=== PATIENT | male | born 1955 | race Caucasian/White ===

== ENCOUNTER 2017-11-01 14:31 | Inpatient (IN) | payer OTHER ==
[~2017-11-01] VITALS: Ht 175.3 cm; Wt 79.1 kg
[~2017-11-01 14:31] MED LIST: CARBIDOPA-LEVO1 EAC7 PO; LATANOPROST2.5 ML OU; PRAMIPEXOLE DIHY1 MG PO; SINEMET 25-1001 EACH PO; TIMOLOL MALEATE5 M4 OU
--- NOTE | 2017-11-01 14:37 | ED CARDIAC/CP/PALPITATIONS ---
History of Present Illness General Chief Complaint: Chest Pain Stated Complaint: CHEST PAIN Source: patient, old records, EMS Exam Limitations: no limitations Vital Signs & Intake/Output Vital Signs & Intake/Output Vital Signs Date Time Temp Pulse Resp B/P B/P Pulse O2 O2 Flow FiO2 Mean Ox Delivery Rate 11/01 1536 Room Air Room Air 11/01 1503 97.6 59 18 106/60 98 Room Air 11/01 1437 97.4 63 18 150/86 96 Room Air Allergies Coded Allergies: No Known Allergies (04/28/16) Reconcile Medications Carbidopa/Levodopa (Carbidopa-Levodopa 25-100 Tab) 25 MG-100 MG TABLET 2 TAB PO Q4 PARKINSONS (Reported) Carbidopa/Levodopa (Sinemet 25-100 MG Tablet) 25 MG-100 MG TABLET 2 TAB PO Q4 PARKINSON Latanoprost 0.005 % DROPS 1 GTT OPH QPM GLAUCOMA (Reported) Pramipexole Di-HCl (Pramipexole Dihydrochloride) 1 MG TABLET 1 TAB PO TID UNKNOWN (Reported) Timolol Maleate 0.5 % DROPS 1 GTT OPH DAILY GLAUCOMA (Reported) Triage Note: 62 YO MALE BIBA FROM [facility] FOR CHEST APIN. PT STATES HE HABD AN EPISODE OF CHEST PAIN YESTERDAY AND TOOK AN ASPIRIN. STATES HE DROVE TO [facility] AND "DIDNT FEEL RIGHT" SO HE CALLED 911. EN ROUTE TO ER, PT RECIEVED 1 NITRO AND 324MG ASPIRIN. PT STATES PAIN WENT FROM 6/10 TO 5/10 AFTER NITRO. SKIN WARM/DRY. EKG IN PROGRESS. STATES PAIN STARTED LATE MORNING TODAY. MD AT BEDSIDE Triage Nurses Notes Reviewed? yes HPI: Patient brought in by ambulance complaining of substernal chest pressure for the past hour. Patient was at [facility] when the symptoms started. Patient states that he's had symptoms like this intermittently over the past few years but it has never lasted this long. Patient states that he had a nuclear stress test done at [facility] last year and he was told that it was normal. Patient states that he follows up with his regular doctor for this and has had regular EKGs but he has not seen a fire equipment operator for it. Patient denies any shortness of breath. There is no radiation of the substernal chest pressure. Patient was given a nitroglycerin by EMS which brought the pressure from a 6 out of 10 down to a 5 out of 10. Past History Travel History Traveled to [place] past 21 day No Medical History Any Pertinent Medical History? see below for history Neurological: Parkinson's disease EENT: glaucoma Cardiovascular: NONE Respiratory: NONE Gastrointestinal: NONE Hepatic: NONE Renal: NONE Musculoskeletal: NONE Psychiatric: NONE Endocrine: NONE Blood Disorders: NONE Cancer(s): NONE Surgical History Surgical History: non-contributory Psychosocial History What is your primary language Citizen Of [place] Tobacco Use: Never used ETOH Use: denies use Illicit Drug Use: denies illicit drug use Family History Hx Contributory? No Review of Systems Review of Systems Constitutional: Reports: no symptoms. EENTM: Reports: no symptoms. Respiratory: Reports: no symptoms. Cardiovascular: Reports: see HPI, chest pain. GI: Reports: no symptoms. Genitourinary: Reports: no symptoms. Musculoskeletal: Reports: no symptoms. Skin: Reports: no symptoms. Neurological/Psychological: Reports: no symptoms. Hematologic/Endocrine: Reports: no symptoms. Immunologic/Allergic: Reports: no symptoms. All Other Systems: Reviewed and Negative Physical Exam Physical Exam General Appearance: well developed/nourished, alert, awake, mild distress Head: atraumatic, normal appearance Eyes: Bilateral: PERRL, EOMI. Ears, Nose, Throat: normal pharynx, normal ENT inspection, hearing grossly normal Neck: normal inspection, supple, full range of motion Respiratory: normal breath sounds, chest non-tender, no respiratory distress, lungs clear Cardiovascular: regular rate/rhythm, normal peripheral pulses Gastrointestinal: normal bowel sounds, soft, non-tender, no organomegaly Back: normal inspection Extremities: normal inspection, normal capillary refill, normal range of motion, no edema Neurologic/Psych: no motor/sensory deficits, awake, alert, oriented x 3, normal mood/affect Skin: intact, normal color, warm/dry Core Measures ACS in differential dx? Yes No ASA d/t GIVEN BY EMS CVA/TIA Diagnosis No Sepsis Present: No Sepsis Focused Exam Completed? No Progress Differential Diagnosis: AMI, cholecystitis, costochondritis, musculoskeletal pain, myocarditis, pericarditis, pulmonary embolism Plan of Care: Orders Procedure Date/time Status Heart Healthy Diet 11/02 B Active ED Holding Orders 11/01 1605 Active Admit to inpatient 11/01 1605 Active Vital Signs 11/01 1605 Active Code Status 11/01 1605 Active URINE DRUGS OF ABUSE 11/01 1530 Active URINALYSIS 11/01 1530 Complete Telemetry/Online Banking Specialist 11/01 1437 Active TROPONIN LEVEL 11/01 1437 Complete D-DIMER 11/01 1437 Complete COMPREHENSIVE METABOLIC PANEL 11/01 143 Complete CBC WITHOUT DIFFERENTIAL 11/01 143 Complete EKG 11/01 1432 Active Current Medications Sig/Luis Miguel Start time Last Medication Dose Stop Time Status Admin Lorazepam 0.5 MG ONE ONE 11/01 161 UNVr (Ativan) 11/01 1616 Laboratory Tests 11/01/17 1533: Methadone Screen Pending, Barbiturate Screen Pending, Ur Phencyclidine Scrn Pending, Amphetamines Screen Pending, U Benzodiazepines Scrn Pending, Urine Cocaine Screen Pending, Urine Cannabis Screen Pending, Urine Color YEL, Urine Clarity CLEAR, Urine pH 6.0, Ur Specific [place] >= 1.030, Urine Protein NEG, Urine Ketones TRACE H, Urine Nitrite NEG, Urine Bilirubin NEG, Urine Urobilinogen 0.2, Ur Leukocyte Esterase NEG, Ur Microscopic EXAM NOT REQUIRED, Urine Hemoglobin NEG, Urine Glucose NEG 11/01/17 1442: Anion Gap 12, Estimated GFR > 60, BUN/Creatinine Ratio 14.4, Glucose 101 H, Calcium 10.0, Total Bilirubin 0.8, AST 30, ALT 17 L, Alkaline Phosphatase 79, Troponin I < 0.01, Total Protein 7.3, Albumin 4.6, Globulin 2.7, Albumin/ Globulin Ratio 1.7, D-Dimer High Sensitivty < 200, CBC w Diff NO MAN DIFF REQ, RBC 5.17, MCV 86.9, MCH 29.1, MCHC 33.5, RDW 13.4, MPV 8.1, Gran % 79.1 H, Lymphocytes % 13.6 L, Monocytes % 6.6, Eosinophils % 0.3, Basophils % 0.4, Absolute Granulocytes 8.1 H, Absolute Lymphocytes 1.4, Absolute Monocytes 0.7 H, Absolute Eosinophils 0, Absolute Basophils 0 Diagnostic Imaging: Viewed by Me: Radiology Read. Discussed w/RAD: Radiology Read. Pre-Hospital EKG: NSR, no ST T wave changes Initial ED EKG: NSR, no ST T wave changes Prior EKG: unchanged Rhythm Strip: normal sinus rhythm Comments: No relief from a second sublingual nitroglycerin. 4/21/18 1530: Patient is currently pain-free. Chest pain resolved on its own. Discussed with Dr. Keene, he recommends that the patient be admitted for further evaluation. Departure Departure Disposition: STILL A PATIENT Condition: Stable Clinical Impression Primary Impression: ACS (acute coronary syndrome) Referrals: Patient Has No Primary Care Dr Departure Forms: Customer Survey General Discharge Information Admission Note Spoke With: Bari WINKLER,Malia Documentation of Exam: Documentation of any treatments & extenuating circumstances including Concerns Regarding Discharge (functional status, medication knowledge or non-compliance, living conditions, etc.) that warrant an admission rather than observation: [ Patient to be admitted to telemetry monitoring, serial enzymes, cardiology consultation with further evaluation and workup. Unsure if this is anxiety or unstable angina.] Critical Care Note Critical Care Note Critical Care Time: non-applicable
[2017-11-01 15:07] LABS: ABSOLUTE BASOPHIL COUNT 0 /CUMM (0.0-0.2); ABSOLUTE EOSINOPHIL COUNT 0 /CUMM (0.0-0.7); ABSOLUTE GRANULOCYTE CT 8.1 /CUMM (1.4-6.5); ABSOLUTE LYMPH COUNT 1.4 /CUMM (1.2-3.4); ABSOLUTE MONOCYTE COUNT 0.7 /CUMM (0.10-0.60); BASOPHIL % 0.4 % (0.0-2.0); EOSINOPHIL % 0.3 % (0-5); GRANULOCYTE % 79.1 % (42.2-75.2); MEAN CORPUSCULAR HGB 29.1 PG (27.0-31.0); MEAN CORPUSCULAR HGB CONC 33.5 G/DL (33.0-37.0); MEAN CORPUSCULAR VOLUME 86.9 FL (80.0-94.0); MEAN PLATELET VOLUME 8.1 FL (7.4-10.4); PLATELET COUNT 346 /CUMM (130-400); RBC DISTRIBUTION WIDTH 13.4 % (11.5-14.5); RED BLOOD CELL CT 5.17 /CUMM (4.70-6.10); WHITE BLOOD CELL COUNT 10.3 /CUMM (4.8-10.8)
--- NOTE | 2017-11-01 15:19 | RADIOLOGY REPORT ---
EXAMINATION: XR PORTABLE CHEST CLINICAL INFORMATION: Chest pain COMPARISON: None TECHNIQUE: Portable frontal view of the chest was obtained. FINDINGS: No significant abnormality is noted involving the heart, lungs, mediastinum, bony thorax or soft tissues. IMPRESSION: Unremarkable examination.
[2017-11-01] MEDS ORDERED: CARBIDOPA-LEVO1 EAC8 PO (16:45)
[2017-11-01] MEDS ORDERED: NUPLAZID17 MG PO (16:46)
[2017-11-01] MEDS ORDERED: PRAMIPEXOLE D0.75 MG PO (16:46)
--- NOTE | 2017-11-01 17:25 | History & Physical ---
Bhargav Blanco MD 11/01/17 3806: General Information and HPI History of Present Illness: 62-year-old man with past medical history of Parkinson's disease and glaucoma brought in by ambulance for evaluation of epigastric pain. Patient reports waking today in his normal state of health when he decided to go to [employer] for lunch. On the way there he developed an acute onset epigastric/chest discomfort characterized as pressure/sharp 6/10 without radiation. He contacted EMS and was picked up and [facility] [employer] parking lot. En route the [place] ED he was given full strength aspirin and nitroglycerin that improved his discomfort to a 5/10. Presently patient reports that his epigastric discomfort is still a 5/10 and admits to having "bad anxiety" that may be contributing to his symptoms. He feels as if his epigastric discomfort may be due to "heartburn". Review of systems He otherwise denies any headache, fever, chills, blurred/double vision, lightheadedness/dizziness, palpitations, shortness breath, cough, nausea, vomiting, diarrhea, bowel/bladder complaints. Objective Vital signs -Temperature: 97.4-97.6 -Heart rate: 59-63 -Respiratory rate: 18 -Systolic BP: 106-150 -Diastolic BP: 60-86 -O2 sat: 96-98% on room air Physical exam -General: well developed, well nourished middle aged man in no acute distress -HEENT: NCAT, PERRL, EOMI, anicteric sclera -Cardio: S1, S2 w/o murmurs/gallops/rubs -Resp: CTA bilaterally w/o wheezing/rhochi/crackles -GI: soft, nontender, nondistended, bowel sounds present -Neuro: Awake and alert, CN II - XII grossly intact -Extremities: no edema, pulses intact Labs/imaging/studies -CBC: WBC 10.3, hemoglobin 15.1, hematocrit 45.0, platelet 346 -BMP: Sodium 141, potassium 4.5, chloride 101, CO2 28, urea 13, creatinine 0.9, anion gap 12, glucose 101 -LFT: Within normal limits -Miscellaneous: Troponin I <0.01, d-dimer negative -Urinalysis: Unremarkable -Urine toxicology: Unremarkable -CXR: Unremarkable -EKG: Normal sinus rhythm Assessment 62-year-old man with multiple medical problems significant for Parkinson's disease seen for evaluation of acute onset epigastric chest pain. Patient epigastric/chest discomfort seems multifactorial in etiology. He describes the pain as heartburn that is worsened by his anxiety. Patient is to be given a GI cocktail to see if that gives him some relief. He may require an oral PPI. Patient is to be admitted to the telemetry floor to rule out any acute coronary syndrome with serial troponin/EKG and cardiology evaluation. An echocardiogram is to be obtained. Psychiatry consult was placed for further evaluation of his anxiety; Atarax is ordered as needed for further symptoms. Problem list -Chest/epigastric pain, unlikely acute coronary syndrome -Anxiety -Parkinson's disease, on Sinemet/pramipexole -History of hallucinations, on nuplazid -Glaucoma Plan -Admit to telemetry floor -Telemetry monitoring -Fall precautions for Parkinson's -Atarax for anxiety every 6 hours -Continue home meds: Sinemet every 3 hours, pramipexole, nuplazid, latanoprost, timolol -Cardiology consult for chest pain -Psychiatry consult for anxiety -Serial troponin/EKG until peak or 3 negative sets -Obtain echocardiogram -Pain control with acetaminophen -Regular diet -DVT prophylaxis with subcutaneous heparin -Full code Allergies/Medications Allergies: Coded Allergies: No Known Allergies (04/28/16) Home Med list Carbidopa/Levodopa (Carbidopa-Levodopa 25-250 Tab) 25 MG-250 MG TABLET 1 TAB PO Q3H PARKINSONS (Reported) Latanoprost 0.005 % DROPS 1 GTT OU QPM GLAUCOMA (Reported) Pimavanserin Tartrate (Nuplazid) 17 MG TABLET 2 TAB PO QPM HALLUCINATIONS ( Reported) Pramipexole Di-HCl (Pramipexole Dihydrochloride) 0.75 MG TABLET 1 TAB PO BID PARKINSONs (Reported) Timolol Maleate 0.5 % DROPS 1 GTT OU EOD GLAUCOMA (Reported) Past History Travel History Traveled to [place] past 21 day No Medical History Neurological: Parkinson's disease EENT: glaucoma Cardiovascular: NONE Respiratory: NONE Gastrointestinal: NONE Hepatic: NONE Renal: NONE Musculoskeletal: NONE Psychiatric: NONE Endocrine: NONE Blood Disorders: NONE Cancer(s): NONE Surgical History Surgical History: non-contributory Past Family/Social History Psychosocial History ETOH Use: denies use Illicit Drug Use: denies illicit drug use Review of Systems Review of Systems Constitutional: Reports: see HPI. Exam & Diagnostic Data Last 24 Hrs of Vital Signs/I&O Vital Signs Date Time Temp Pulse Resp B/P B/P Pulse O2 O2 Flow FiO2 Mean Ox Delivery Rate 11/01 1801 98.7 51 18 118/60 97 Room Air 11/01 1700 97.4 66 15 136/85 98 Room Air Room Air 11/01 1536 Room Air Room Air 11/01 1503 97.6 59 18 106/60 98 Room Air 11/01 1437 97.4 63 18 150/86 96 Room Air Intake & Output 11/01 1600 11/01 0800 11/01 0000 Intake Total 0 Output Total Balance 0 Intake, Oral 0 Patient 73.936 kg Weight Weight Reported by Patient Measurement Method Assessment/Plan As Ranked By This Provider Problem List: 1. Parkinson disease Core Measures/Misc (03/30) Acute Coronary Syndrome ACS Diagnosis: No Congestive Heart Failure Congestive Heart Failure Diagnosis No Cerebrovascular Accident CVA/TIA Diagnosis: No VTE (View Protocol) VTE Risk Factors Age>40 No Mechanical VTE Prophylaxis d/t N/A MechProphylax Ordered No VTE Pharm Prophylaxis d/t NA PharmProphylax ordered Sepsis (View protocol) Sepsis Present: No Malia Candelaria MD 11/01/17 1842: Attending MD Review Statement Attending Statement Attending MD Statement: examined this patient, discuss w/resident/PA/BALCONY WORKER, agreed w/resident/PA/BALCONY WORKER, reviewed EMR data (avail), discussed with nursing, discussed with case mgmt, reviewed images, amended to note Attending Assessment/Plan: 62-year-old male with past medical history significant for Parkinson's disease, hallucinations, of and on epigastric pain who presented today with substernal chest/epigastric pain. Patient claims that normally when this pain comes it lasts for 30 minutes or so and then it goes away. Today he was walking to his car from a shop when he developed this pain. He went into the car and started to drive home. Pain did not go away so he started to become anxious. He pulled over and tried to relax but the pain did not go away. He called EMS and was brought to the emergency room. Patient received nitroglycerin glycerin by EMS which did not help much but then in the emergency room the second nitroglycerin glycerin helped with the pain. He also claims that they give him something for anxiety en route. Patient denies any shortness of breath, he did have some nausea and vomiting 2 days ago, denies any sweating or palpitations. Patient is somewhat bradycardic. Currently denies any pain. Off note he does take very high dose of Sinemet and he follows with a neurologist in [facility]. He also take pramipexole for his Parkinson's. Vital Signs Date Time Temp Pulse Resp B/P B/P Pulse O2 O2 Flow FiO2 Mean Ox Delivery Rate 11/01 1801 98.7 51 18 118/60 97 Room Air 11/01 1700 97.4 66 15 136/85 98 Room Air Room Air 11/01 1536 Room Air Room Air 11/01 1503 97.6 59 18 106/60 98 Room Air 11/01 1437 97.4 63 18 150/86 96 Room Air on exam; aox3, nad. cv; s1,s2, rrr, bradycardia. resp; clear abd; soft, nt, bs+ ext; no edema Laboratory Tests 11/01 11/01 1533 1442 Chemistry Sodium (137 - 145 mmol/L) 141 Potassium (3.5 - 5.1 mmol/L) 4.5 Chloride (98 - 107 mmol/L) 101 Carbon Dioxide (22 - 30 mmol/L) 28 Anion Gap (5 - 16) 12 BUN (9 - 20 mg/dL) 13 Creatinine (0.7 - 1.2 mg/dL) 0.9 Estimated GFR (>60 ml/min) > 60 BUN/Creatinine Ratio (7 - 25 %) 14.4 Glucose (65 - 99 mg/dL) 101 H Calcium (8.4 - 10.2 mg/dL) 10.0 Total Bilirubin (0.2 - 1.3 mg/dL) 0.8 AST (17 - 59 U/L) 30 ALT (21 - 72 U/L) 17 L Alkaline Phosphatase (< 127 U/L) 79 Troponin I (<0.11 ng/ml) < 0.01 Total Protein (6.3 - 8.2 g/dL) 7.3 Albumin (3.5 - 5.0 g/dL) 4.6 Globulin (1.9 - 4.2 gm/dL) 2.7 Albumin/Globulin Ratio (1.1 - 2.2 %) 1.7 Coagulation D-Dimer High Sensitivty (0 - 243 ng/ml) < 200 Hematology CBC w Diff NO MAN DIFF REQ WBC (4.8 - 10.8 /CUMM) 10.3 RBC (4.70 - 6.10 /CUMM) 5.17 Hgb (14.0 - 18.0 G/DL) 15.1 Hct (42 - 52 %) 45.0 MCV (80.0 - 94.0 FL) 86.9 MCH (27.0 - 31.0 PG) 29.1 MCHC (33.0 - 37.0 G/DL) 33.5 RDW (11.5 - 14.5 %) 13.4 Plt Count (130 - 400 /CUMM) 346 MPV (7.4 - 10.4 FL) 8.1 Gran % (42.2 - 75.2 %) 79.1 H Lymphocytes % (20.5 - 51.1 %) 13.6 L Monocytes % (1.7 - 9.3 %) 6.6 Eosinophils % (0 - 5 %) 0.3 Basophils % (0.0 - 2.0 %) 0.4 Absolute Granulocytes (1.4 - 6.5 /CUMM) 8.1 H Absolute Lymphocytes (1.2 - 3.4 /CUMM) 1.4 Absolute Monocytes (0.10 - 0.60 /CUMM) 0.7 H Absolute Eosinophils (0.0 - 0.7 /CUMM) 0 Absolute Basophils (0.0 - 0.2 /CUMM) 0 Toxicology Urine Opiates Screen (>2000 NG/ML) < 100 Methadone Screen (>300 NG/ML) < 40 Barbiturate Screen (>200 NG/ML) < 60 Ur Phencyclidine Scrn (>25 NG/ML) < 6.00 Amphetamines Screen (>1000 NG/ML) 209 U Benzodiazepines Scrn (>200 NG/ML) < 85 Urine Cocaine Screen (>300 NG/ML) < 50 Urine Cannabis Screen (>50 NG/ML) < 5.00 Urines Urine Color (YEL,AMB,STR) YEL Urine Clarity (CLEAR) CLEAR Urine pH (5.0 - 8.0) 6.0 Ur Specific [place] (1.001 - 1.035) >= 1.030 Urine Protein (NEG,<30 MG/DL) NEG Urine Ketones (NEG) TRACE H Urine Nitrite (NEG) NEG Urine Bilirubin (NEG) NEG Urine Urobilinogen (0.1 - 1.0 EU/dl) 0.2 Ur Leukocyte Esterase (NEG) NEG Ur Microscopic EXAM NOT REQUIRED Urine Hemoglobin (NEG) NEG Urine Glucose (N MG/DL) NEG EKG:: Sinus bradycardia otherwise no acute ST-T wave changes. CXR: Unremarkable. A/P: 62-year-old male with past medical history significant for Parkinson's disease, hallucinations, of and on epigastric pain is admitted to telemetry with chest pain/substernal and epigastric pain. First troponin and EKG negative. Troponins will be trended. Patient to get echocardiogram. Cardiology will be consulted. Please check repeat echo. Patient does have some bradycardia. Will follow with cardiology about any further recommendations. Patient does take very high dose of Sinemet and pramipexole but his neurologist. For now this can be continued and his neurologist can be called on Friday if needed to confirm. Patient will be monitored on telemetry for any arrhythmias. He should be started on a PPI. Patient does complain of feeling anxious. He can use hydroxyzine for anxiety. Please consult psychiatry for anxiety. DVT prophylaxis: Heparin subcutaneous. Full code.
[2017-11-01 18:01] VITALS: BP 118/60
[2017-11-01 22:43] VITALS: BP 138/82
--- NOTE | 2017-11-01 22:46 | Cons- Cardiology ---
General Information and HPI Consulting Request Date of Consult: 11/01/17 Requested By: Malia Candelaria MD History of Present Illness: This patient is a 62 year old male with history of hypertension and Parkinson's disease. He has noted intermittent chest discomfort about one time weekly for about five years. Over the past three days this discomfort has become more frequent and lasts for a longer period of time when it occurs. The discomfort is a mild to moderate and nonradiating aching associated with a left arm paresthesia. On one occasion the patient was nauseated. Today, while in a [employer] lot, the patient had a moderate chest pain and called EMS. They gave him NTG which did provide some, but not complete, relief. There is some associated shortness of breath however the patient denies lightheadedness or palpitations. Allergies/Medications Allergies: Coded Allergies: No Known Allergies (04/28/16) Home Med List: Carbidopa/Levodopa (Carbidopa-Levodopa 25-250 Tab) 25 MG-250 MG TABLET 1 TAB PO Q3H PARKINSONS (Reported) Latanoprost 0.005 % DROPS 1 GTT OU QPM GLAUCOMA (Reported) Pimavanserin Tartrate (Nuplazid) 17 MG TABLET 2 TAB PO QPM HALLUCINATIONS ( Reported) Pramipexole Di-HCl (Pramipexole Dihydrochloride) 0.75 MG TABLET 1 TAB PO BID PARKINSONs (Reported) Timolol Maleate 0.5 % DROPS 1 GTT OU EOD GLAUCOMA (Reported) Review of Systems Review of Systems: A review of systems is unremarkable. Past History Travel History Traveled to [place] past 21 day No Medical History Blood Transfusion Hx: No Neurological: Parkinson's disease EENT: glaucoma Cardiovascular: NONE Respiratory: NONE Gastrointestinal: NONE Hepatic: NONE Renal: NONE Musculoskeletal: NONE Psychiatric: NONE Endocrine: NONE Blood Disorders: NONE Cancer(s): NONE Surgical History Surgical History: non-contributory Psychosocial History Where Do You Live? Home Smoking Status: Never Smoked ETOH Use: denies use Illicit Drug Use: denies illicit drug use Exam & Diagnostic Data Vital Signs and I&O Vital Signs Date Time Temp Pulse Resp B/P B/P Pulse O2 O2 Flow FiO2 Mean Ox Delivery Rate 11/01 1801 98.7 51 18 118/60 97 Room Air 11/01 1800 Room Air 11/01 1700 97.4 66 15 136/85 98 Room Air Room Air 11/01 1536 Room Air Room Air 11/01 1503 97.6 59 18 106/60 98 Room Air 11/01 1437 97.4 63 18 150/86 96 Room Air Intake & Output 11/01 1600 11/01 0800 11/01 0000 10/31 1600 10/31 0800 10/31 0000 Intake Total 0 Output Total Balance 0 Intake, Oral 0 Patient 163 lb Weight Weight Reported by Patient Measurement Method Physical Exam: General: WD/WN male in NAD; alert and oriented x 3 HEENT: NC/AT, PERRL, EOMI Neck: no JVD, no carotid bruit Heart: RRR with 2/6 systolic murmur Lungs: clear bilaterally ABdomen: soft, NT, +ve bowel sounds Extremities: no edema Assessment/Plan Assessment/Plan * This patient has intermittent chest discomfort without any clear exertional component which is increasing in frequency, intensity and duration. It is not related to eating of breathing but is increased by anxiety and possibly by walking. The discomfort is consistent with unstable angina. We will begin IV heparin, aspirin 325mg daily and Plavix 75mg daily. Add NTG paste 1/2 inch if any recurrent chest pain. Check a lipid profile and begin a statin. * Follow three sets of cardiac enzymes. * Obtain an echocardiogram * We will risk stratify with a treadmill nuclear stress test. * Begin Lopressor 12.5mg BID. Consult Acknowledgment - Thank you for your consult request.
--- NOTE | 2017-11-02 01:53 | Event Note ---
Event Note Event Note: Pt was informed about the need for starting him on IV heparin. He agreed for the same but denied per rectal exam for guaiac test. The same was relayed to the nurse and resident and was decided to start him on IV heparin.
[2017-11-02 02:26] LABS: ABSOLUTE EOSINOPHIL COUNT 0.1 /CUMM (0.0-0.7); ABSOLUTE GRANULOCYTE CT 7.1 /CUMM (1.4-6.5); ABSOLUTE MONOCYTE COUNT 0.8 /CUMM (0.10-0.60); WHITE BLOOD CELL COUNT 10.6 /CUMM (4.8-10.8)
[2017-11-02 02:29] LABS: ABSOLUTE BASOPHIL COUNT 0 /CUMM (0.0-0.2); ABSOLUTE LYMPH COUNT 2.6 /CUMM (1.2-3.4); BASOPHIL % 0.3 % (0.0-2.0); EOSINOPHIL % 0.7 % (0-5); MEAN CORPUSCULAR HGB 29.5 PG (27.0-31.0); MEAN CORPUSCULAR VOLUME 86.9 FL (80.0-94.0); MEAN PLATELET VOLUME 8.3 FL (7.4-10.4); PLATELET COUNT 272 /CUMM (130-400); RBC DISTRIBUTION WIDTH 13.3 % (11.5-14.5); RED BLOOD CELL CT 4.57 /CUMM (4.70-6.10)
[2017-11-02 02:39] LABS: HEMATOCRIT 39.7 % (42-52)
[2017-11-02 06:46] VITALS: BP 100/60
[2017-11-02 09:43] LABS: PTT 51 SEC (25-37)
--- NOTE | 2017-11-02 10:31 | PN- Att Addend ---
Attending Addendum Attending Brief Note Patient seen and examined, denies any further chest pain. Patient was bradycardic to 30s last night on the telemetry. He's very concerned about his hallucination medication to be started. Vital Signs Date Time Temp Pulse Resp B/P B/P Pulse O2 O2 Flow FiO2 Mean Ox Delivery Rate 11/02 0907 52 116/74 11/02 0646 97.9 48 20 100/60 98 Room Air 11/01 2243 97.9 65 16 138/82 99 Room Air 11/01 1801 98.7 51 18 118/60 97 Room Air 11/01 1800 Room Air 11/01 1700 97.4 66 15 136/85 98 Room Air Room Air 11/01 1536 Room Air Room Air 11/01 1503 97.6 59 18 106/60 98 Room Air 11/01 1437 97.4 63 18 150/86 96 Room Air on exam; aox3, nad. cv; s1,s2, rrr, bradycardia. resp; clear abd; soft, nt, bs+ ext; no edema Laboratory Tests 11/02 11/02 11/02 0900 0835 0200 Chemistry Sodium (137 - 145 mmol/L) 141 Potassium (3.5 - 5.1 mmol/L) 4.1 Chloride (98 - 107 mmol/L) 106 Carbon Dioxide (22 - 30 mmol/L) 25 Anion Gap (5 - 16) 10 BUN (9 - 20 mg/dL) 14 Creatinine (0.7 - 1.2 mg/dL) 0.9 Estimated GFR (>60 ml/min) > 60 BUN/Creatinine Ratio (7 - 25 %) 15.6 Magnesium (1.6 - 2.3 mg/dL) 2.1 Troponin I (<0.11 ng/ml) < 0.01 Triglycerides (<150 mg/dL) 89 Cholesterol (< 200 MG/DL) 147 LDL Cholesterol, Calc (65 - 129 mg/dL) 67 HDL Cholesterol (40 - 60 mg/dL) 63 H Cholesterol/HDL Ratio (0.00 - 4.88 %) 2 Coagulation APTT (25 - 37 SEC) Cancelled 51 H Hematology CBC w Diff NO MAN DIFF REQ WBC (4.8 - 10.8 /CUMM) 10.6 RBC (4.70 - 6.10 /CUMM) 4.57 L Hgb (14.0 - 18.0 G/DL) 13.5 L Hct (42 - 52 %) 39.7 L MCV (80.0 - 94.0 FL) 86.9 MCH (27.0 - 31.0 PG) 29.5 MCHC (33.0 - 37.0 G/DL) 34.0 RDW (11.5 - 14.5 %) 13.3 Plt Count (130 - 400 /CUMM) 272 MPV (7.4 - 10.4 FL) 8.3 Gran % (42.2 - 75.2 %) 67.0 Lymphocytes % (20.5 - 51.1 %) 24.2 Monocytes % (1.7 - 9.3 %) 7.8 Eosinophils % (0 - 5 %) 0.7 Basophils % (0.0 - 2.0 %) 0.3 Absolute Granulocytes (1.4 - 6.5 /CUMM) 7.1 H Absolute Lymphocytes (1.2 - 3.4 /CUMM) 2.6 Absolute Monocytes (0.10 - 0.60 /CUMM) 0.8 H Absolute Eosinophils (0.0 - 0.7 /CUMM) 0.1 Absolute Basophils (0.0 - 0.2 /CUMM) 0 11/01 11/01 2045 1533 Chemistry Troponin I (<0.11 ng/ml) < 0.01 Toxicology Urine Opiates Screen (>2000 NG/ML) < 100 Methadone Screen (>300 NG/ML) < 40 Barbiturate Screen (>200 NG/ML) < 60 Ur Phencyclidine Scrn (>25 NG/ML) < 6.00 Amphetamines Screen (>1000 NG/ML) 209 U Benzodiazepines Scrn (>200 NG/ML) < 85 Urine Cocaine Screen (>300 NG/ML) < 50 Urine Cannabis Screen (>50 NG/ML) < 5.00 Urines Urine Color (YEL,AMB,STR) YEL Urine Clarity (CLEAR) CLEAR Urine pH (5.0 - 8.0) 6.0 Ur Specific [place] (1.001 - 1.035) >= 1.030 Urine Protein (NEG,<30 MG/DL) NEG Urine Ketones (NEG) TRACE H Urine Nitrite (NEG) NEG Urine Bilirubin (NEG) NEG Urine Urobilinogen (0.1 - 1.0 EU/dl) 0.2 Ur Leukocyte Esterase (NEG) NEG Ur Microscopic EXAM NOT REQUIRED Urine Hemoglobin (NEG) NEG Urine Glucose (N MG/DL) NEG 11/01 1442 Chemistry Sodium (137 - 145 mmol/L) 141 Potassium (3.5 - 5.1 mmol/L) 4.5 Chloride (98 - 107 mmol/L) 101 Carbon Dioxide (22 - 30 mmol/L) 28 Anion Gap (5 - 16) 12 BUN (9 - 20 mg/dL) 13 Creatinine (0.7 - 1.2 mg/dL) 0.9 Estimated GFR (>60 ml/min) > 60 BUN/Creatinine Ratio (7 - 25 %) 14.4 Glucose (65 - 99 mg/dL) 101 H Calcium (8.4 - 10.2 mg/dL) 10.0 Total Bilirubin (0.2 - 1.3 mg/dL) 0.8 AST (17 - 59 U/L) 30 ALT (21 - 72 U/L) 17 L Alkaline Phosphatase (< 127 U/L) 79 Troponin I (<0.11 ng/ml) < 0.01 Total Protein (6.3 - 8.2 g/dL) 7.3 Albumin (3.5 - 5.0 g/dL) 4.6 Globulin (1.9 - 4.2 gm/dL) 2.7 Albumin/Globulin Ratio (1.1 - 2.2 %) 1.7 Coagulation D-Dimer High Sensitivty (0 - 243 ng/ml) < 200 Hematology CBC w Diff NO MAN DIFF REQ WBC (4.8 - 10.8 /CUMM) 10.3 RBC (4.70 - 6.10 /CUMM) 5.17 Hgb (14.0 - 18.0 G/DL) 15.1 Hct (42 - 52 %) 45.0 MCV (80.0 - 94.0 FL) 86.9 MCH (27.0 - 31.0 PG) 29.1 MCHC (33.0 - 37.0 G/DL) 33.5 RDW (11.5 - 14.5 %) 13.4 Plt Count (130 - 400 /CUMM) 346 MPV (7.4 - 10.4 FL) 8.1 Gran % (42.2 - 75.2 %) 79.1 H Lymphocytes % (20.5 - 51.1 %) 13.6 L Monocytes % (1.7 - 9.3 %) 6.6 Eosinophils % (0 - 5 %) 0.3 Basophils % (0.0 - 2.0 %) 0.4 Absolute Granulocytes (1.4 - 6.5 /CUMM) 8.1 H Absolute Lymphocytes (1.2 - 3.4 /CUMM) 1.4 Absolute Monocytes (0.10 - 0.60 /CUMM) 0.7 H Absolute Eosinophils (0.0 - 0.7 /CUMM) 0 Absolute Basophils (0.0 - 0.2 /CUMM) 0 A/P; 62-year-old male with past medical history significant for Parkinson's disease, hallucinations, of and on epigastric pain is admitted to telemetry with chest pain/substernal and epigastric pain. First troponin and EKG negative. All troponins remain negative. Patient has been seen by cardiology and there is a possibility of unstable angina according to their evaluation. Patient has been started on statin, aspirin and heparin. He was also started on low-dose beta katherine although his heart rate did go down to 30s last night. Please discuss with cardiology about continued use of beta katherine. Patient should be given his hallucination medication is now he is getting anxious about that. Continue the rest of the medications. Patient would benefit from psychiatric evaluation for his anxiety. Patient to get echo. Cardiology recommends treadmill nuclear stress test. DVT px: Heparin drip
--- NOTE | 2017-11-02 11:43 | PN- Cardiology ---
Subjective Subjective: * Chest discomfort initially went away but has returned this morning. It is very mild. * sinus rhythm Objective Vital Signs and I&Os Vital Signs Date Time Temp Pulse Resp B/P B/P Pulse O2 O2 Flow FiO2 Mean Ox Delivery Rate 11/02 0907 52 116/74 11/02 0646 97.9 48 20 100/60 98 Room Air 11/01 2243 97.9 65 16 138/82 99 Room Air 11/01 1801 98.7 51 18 118/60 97 Room Air 11/01 1800 Room Air 11/01 1700 97.4 66 15 136/85 98 Room Air Room Air 11/01 1536 Room Air Room Air 11/01 1503 97.6 59 18 106/60 98 Room Air 11/01 1437 97.4 63 18 150/86 96 Room Air Intake & Output 11/02 1600 11/02 0800 11/02 0000 11/01 1600 11/01 0800 11/01 0000 Intake Total 188.4 80 0 Output Total 125 250 Balance 63.4 -170 0 Intake, IV 88.4 Intake, Oral 100 80 0 Output, Urine 125 250 Patient 180 lb 163 lb Weight Weight Bed scale Reported by Patient Measurement Method Physical Exam: General: WD/WN male in NAD; alert and oriented x 3 HEENT: NC/AT, PERRL, EOMI Neck: no JVD, no carotid bruit Heart: RRR with 2/6 systolic murmur Lungs: clear bilaterally ABdomen: soft, NT, +ve bowel sounds Extremities: no edema Assessment/Plan Assessment/Plan * This patient has intermittent chest discomfort without any clear exertional component which is increasing in frequency, intensity and duration. It is not related to eating of breathing but is increased by anxiety and possibly by walking. The discomfort is consistent with unstable angina. Continue IV heparin, Metoprolol, aspirin 325mg daily and Plavix 75mg daily. Add NTG paste 1/2 inch if any recurrent chest pain. Check a lipid profile and begin a statin. * Patient ruled out for an NC. * Obtain an echocardiogram * We will risk stratify with a treadmill nuclear stress test. Continue telemetry? Yes
--- NOTE | 2017-11-02 12:39 | PN- Housestaff ---
Subjective Follow-up For: -Chest/epigastric pain, unlikely acute coronary syndrome -Anxiety -Parkinson's disease, on Sinemet/pramipexole -History of hallucinations, on nuplazid -Glaucoma Complaints: no complaints Tele-Events Since Last Visit: with bradycardia of 39 at 1:20am. Subjective: Patient has no complaints, had an episode of bradycardia last night, no abdominal pain or nausea or vomiting, patient does complain of some audiovisual hallucinations related to his psychiatric issues and Parkinson's. Review of Systems Constitutional: Reports: no symptoms. EENTM: Reports: no symptoms. Cardiovascular: Reports: no symptoms. Gastrointestinal: Reports: no symptoms. Neurological/Psychological: Reports: cognitive dysfunction. Objective Last 24 Hrs of Vital Signs/I&O Vital Signs Date Time Temp Pulse Resp B/P B/P Pulse O2 O2 Flow FiO2 Mean Ox Delivery Rate 11/02 1455 97.8 54 20 110/66 97 Room Air 11/02 0907 52 116/74 11/02 0646 97.9 48 20 100/60 98 Room Air 11/01 2243 97.9 65 16 138/82 99 Room Air Intake & Output 11/02 1600 11/02 0800 11/02 0000 Intake Total 800 188.4 80 Output Total 750 125 250 Balance 50 63.4 -170 Intake, IV 88.4 Intake, Oral 800 100 80 Output, Urine 750 125 250 Patient 180 lb Weight Weight Bed scale Measurement Method Physical Exam General Appearance: Alert, Oriented X3, Cooperative, No Acute Distress Skin: No Rashes, No Breakdown, No Significant Lesion Skin Temp/Moisture Exam: Warm/Dry Sepsis Skin Exam (color): Normal for Ethnicity HEENT: Atraumatic, PERRLA, EOMI, Mucous Membr. moist/pink Cardiovascular: Regular Rate, Normal S1, Normal S2, No Murmurs Lungs: Clear to Auscultation, Normal Air Movement Abdomen: Normal Bowel Sounds, Soft, No Tenderness, No Hepatospenomegaly, No Masses Neurological: Normal Speech Extremities: No Clubbing, No Cyanosis, No Edema, Normal Pulses Vascular: Normal Pulses, Pulses Symmetrical Current Medications: Current Medications Sig/Luis Miguel Start time Last Medication Dose Route Stop Time Status Admin Acetaminophen 650 MG Q6P PRN 11/01 1730 AC PO Aspirin 325 MG DAILY 11/02 0130 AC 11/02 PO 0908 Atorvastatin Calcium 40 MG 1700 11/02 0200 AC 11/02 PO 1714 Carbidopa/Levodopa 1 TAB Q3H 11/01 1730 AC 11/02 PO 1714 Clopidogrel Bisulfate 0 .STK-MED ONE 11/02 0149 DC PO Clopidogrel Bisulfate 75 MG DAILY 11/02 0130 AC 11/02 PO 0905 Heparin Sodium 2,500 UNIT ONCE ONE 11/02 1200 DC 11/02 (Porcine) IV 11/02 1201 1223 Heparin Sodium 5,000 UNIT Q8 11/01 2200 DC 11/01 (Porcine) SC 202 Heparin Sodium/ 25,000 UNIT Q24H 11/02 0130 11/02 Dextrose IV 0204 Dextrose/Water 500 ML Hydroxyzine HCl 25 MG 4 TIMES/DAY PRN 11/01 1730 AC 11/02 PO 1429 Latanoprost 1 GTT QPM 11/01 2100 11/01 OPH 202 Metoprolol Tartrate 12.5 MG BID 11/02 0900 AC 11/02 PO 0907 Nitroglycerin 1 GM .STK-MED ONE 11/02 0137 WV TOP 11/02 0138 Nitroglycerin 0.5 GM Q6P PRN 11/02 0130 11/02 TOP 1817 Non-Formulary 0 SEE ADMIN CRITERIA 11/01 173 UNVr Medication ANY Omeprazole 40 MG DAILY AC 11/02 0700 AC 11/02 PO 0533 Pramipexole 0.75 MG BID 11/01 2100 AC 11/02 Dihydrochloride PO 0905 Timolol Maleate 1 GTT Q48 11/03 0900 AC OPH Last 24 Hrs of Lab/Shoaib Results Last 24 Hrs of Labs/Mics: Laboratory Tests 11/02/17 1816: Troponin I Pending 11/02/17 0900: APTT Cancelled 11/02/17 0835: APTT 51 H 11/02/17 0200: Anion Gap 10, Estimated GFR > 60, BUN/Creatinine Ratio 15.6, Magnesium 2.1, Troponin I < 0.01, Triglycerides 89, Cholesterol 147, LDL Cholesterol, Calc 67, HDL Cholesterol 63 H, Cholesterol/HDL Ratio 2, CBC w Diff NO MAN DIFF REQ, RBC 4.57 L, MCV 86.9, MCH 29.5, MCHC 34.0, RDW 13.3, MPV 8.3, Gran % 67.0, Lymphocytes % 24.2, Monocytes % 7.8, Eosinophils % 0.7, Basophils % 0.3, Absolute Granulocytes 7.1 H, Absolute Lymphocytes 2.6, Absolute Monocytes 0.8 H, Absolute Eosinophils 0.1, Absolute Basophils 0 11/01/172044: Troponin I < 0.01 Assessment/Plan Assessment: 62-year-old man with multiple medical problems significant for Parkinson's disease seen for evaluation of acute onset epigastric chest pain. Patient epigastric/chest discomfort seems multifactorial in etiology. He describes the pain as heartburn that is worsened by his anxiety. Patient is to be given a GI cocktail to see if that gives him some relief. Patient admitted to the telemetry floor to rule out any acute coronary syndrome with serial troponin/EKG and cardiology evaluation. Psychiatry consult was placed for further evaluation of his anxiety; Atarax is ordered as needed for further symptoms. Problem list -Chest/epigastric pain, unlikely acute coronary syndrome -Anxiety -Parkinson's disease, on Sinemet/pramipexole -History of hallucinations, on nuplazid Plan -Telemetry monitoring -Troponins and EKG negative for ACS -Patient had a return of mild chest pain today. It is related to anxiety and by exertion consistent with UA. -Continue IV heparin, Metoprolol, aspirin 325mg daily and Plavix 75mg daily. -Add NTG paste 1/2 inch if any recurrent chest pain. -Check a lipid profile -Begin a statin. -Follow up echo -Nuclear exercise stress test tomorrow -Fall precautions for Parkinson's -Atarax for anxiety every 6 hours -Continue home meds: Sinemet every 3 hours, pramipexole, nuplazid, latanoprost, timolol -Psychiatry consult for anxiety and parkinson's drugs. Of note patient is on nuplazid for hallucinations and will need to be continued on this as per psych recommendations tomorrow. IN THE MEANTIME IF PATIENT GETTING MORE ANXIOUS THEN TRY 12.5MG SEROQUEL DAILY PRN. WE HAVE ORDERED HIS NUPLAZID NONFORMULARY FOR TOMORROW. -Pain control with acetaminophen -Regular diet -DVT prophylaxis with subcutaneous heparin -Full code Problem List: 1. Parkinson disease 2. ACS (acute coronary syndrome) Pain Ratin Pain Location: na Pain Goal: Remain pain free Pain Plan: na Tomorrow's Labs & Rationales: cbc bep
[2017-11-02 14:55] VITALS: BP 110/66
[2017-11-02 21:22] LABS: PTT > 120 SEC (25-37)
[2017-11-02 23:15] VITALS: BP 122/78
[2017-11-03 04:52] LABS: ABSOLUTE BASOPHIL COUNT 0 /CUMM (0.0-0.2); ABSOLUTE EOSINOPHIL COUNT 0 /CUMM (0.0-0.7); ABSOLUTE GRANULOCYTE CT 6.6 /CUMM (1.4-6.5); ABSOLUTE LYMPH COUNT 2.2 /CUMM (1.2-3.4); ABSOLUTE MONOCYTE COUNT 0.8 /CUMM (0.10-0.60); BASOPHIL % 0.5 % (0.0-2.0); EOSINOPHIL % 0.4 % (0-5); GRANULOCYTE % 68.1 % (42.2-75.2); HEMATOCRIT 38.6 % (42-52); MEAN CORPUSCULAR HGB 29.4 PG (27.0-31.0); MEAN CORPUSCULAR VOLUME 86.4 FL (80.0-94.0); MEAN PLATELET VOLUME 8.6 FL (7.4-10.4); PLATELET COUNT 260 /CUMM (130-400); RBC DISTRIBUTION WIDTH 13.5 % (11.5-14.5); RED BLOOD CELL CT 4.47 /CUMM (4.70-6.10); WHITE BLOOD CELL COUNT 9.8 /CUMM (4.8-10.8)
[2017-11-03 05:17] LABS: PTT 119 SEC (25-37)
[2017-11-03 07:00] VITALS: BP 106/64
--- NOTE | 2017-11-03 07:23 | PN- Housestaff ---
Subjective Follow-up For: Chest pain, unstable angina anxiety Tele-Events Since Last Visit: bradycardia to the 40s Subjective: Patient was seen and examined at bedside. He is resting comfortably. Overnight he had an episode of chest pain, troponin and EKG were done, with no concerning findings. Patient states he has not had any recurrence. He reports that his chest pain mostly occurs after eating, but also believes that is a component of anxiety to it. He would like to speak to a psychiatrist Review of Systems Constitutional: Denies: chills, fever. EENTM: Reports: no symptoms. Cardiovascular: Reports: chest pain (brief episode, resolved). Denies: palpitations. Respiratory: Denies: cough, short of breath. Gastrointestinal: Denies: melena, nausea, bloody stool. Genitourinary: Reports: no symptoms. Musculoskeletal: Reports: no symptoms. Objective Last 24 Hrs of Vital Signs/I&O Vital Signs Date Time Temp Pulse Resp B/P B/P Pulse O2 O2 Flow FiO2 Mean Ox Delivery Rate 11/02 2315 97.5 77 16 122/78 95 Room Air 11/02 2120 78 122/78 11/02 1455 97.8 54 20 110/66 97 Room Air 11/02 0907 52 116/74 Intake & Output 11/03 0800 11/03 0000 11/02 1600 Intake Total 224.8 610 800 Output Total 250 750 Balance -25.2 610 50 Intake, IV 124.8 160 Intake, Oral 100 450 800 Number 0 Bowel Movements Output, Urine 250 750 Patient 176 lb Weight Physical Exam General Appearance: Alert, Oriented X3, Cooperative, No Acute Distress Skin Temp/Moisture Exam: Warm/Dry Cardiovascular: Regular Rate, Normal S1, Normal S2, No Murmurs, no chest pain with palpation Lungs: Clear to Auscultation, Normal Air Movement Abdomen: Normal Bowel Sounds, Soft, No Tenderness Neurological: Normal Speech, Normal Tone, Sensation Intact Extremities: No Clubbing, No Cyanosis, No Edema Current Medications: Current Medications Sig/Luis Miguel Start time Last Medication Dose Route Stop Time Status Admin Acetaminophen 650 MG Q6P PRN 11/01 1730 AC PO Aspirin 325 MG DAILY 11/02 0130 AC 11/02 PO 0908 Atorvastatin Calcium 40 MG 1700 11/02 0200 AC 11/02 PO 1714 Carbidopa/Levodopa 1 TAB Q3H 11/01 1730 AC 11/03 PO 0551 Clopidogrel Bisulfate 75 MG DAILY 11/02 0130 AC 11/02 PO 0905 Heparin Sodium 2,500 UNIT ONCE ONE 11/02 1200 DC 11/02 (Porcine) IV 11/02 1201 1223 Heparin Sodium/ 25,000 UNIT Q24H 11/02 0130 AC 11/03 Dextrose IV 0334 Dextrose/Water 500 ML Hydroxyzine HCl 25 MG 4 TIMES/DAY PRN 11/01 1730 AC 11/02 PO 2121 Latanoprost 1 GTT QPM 11/01 2100 AC 11/02 OPH 2120 Metoprolol Tartrate 12.5 MG BID 11/02 0900 AC 11/02 PO 2120 Nitroglycerin 0.5 GM Q6P PRN 11/02 0130 AC 11/02 TOP 1817 Non-Formulary 0 SEE ADMIN CRITERIA 11/01 1730 UNVr Medication ANY Omeprazole 40 MG DAILY AC 11/02 0700 AC 11/03 PO 0551 Pramipexole 0.75 MG BID 11/01 2100 AC 11/02 Dihydrochloride PO 2120 Quetiapine Fumarate 12.5 MG DAILY PRN 11/02 1915 AC PO Timolol Maleate 1 GTT Q48 11/03 0900 AC OPH Last 24 Hrs of Lab/Shoaib Results Last 24 Hrs of Labs/Mics: Laboratory Tests 11/03/17 0341: Anion Gap 11, Estimated GFR > 60, BUN/Creatinine Ratio 15.6, APTT 119 *H, CBC w Diff NO MAN DIFF REQ, RBC 4.47 L, MCV 86.4, MCH 29.4, MCHC 34.0, RDW 13.5, MPV 8.6, Gran % 68.1, Lymphocytes % 22.6, Monocytes % 8.4, Eosinophils % 0.4, Basophils % 0.5, Absolute Granulocytes 6.6 H, Absolute Lymphocytes 2.2, Absolute Monocytes 0.8 H, Absolute Eosinophils 0, Absolute Basophils 0 11/02/172042: Troponin I < 0.01, APTT > 120 *H Assessment/Plan Assessment: Patient is a 62-year-old man with a PMH significant for Parkinson's disease who presented complaining of acute onset of epigastric pain. Pain is associated with by mouth intake, patient also believes that there may be a component of his anxiety to the pain. #Chest pain, unstable angina Patient had a recurrent episode of chest pain overnight, troponin was negative and EKG showed no significant ST-T changes. Patient was seen by cardiology, believes this is unstable angina. -Follow-up results of stress test today -Start PPI and Tums -Continue IV heparin, metoprolol, aspirin, Plavix, statin, nitroglycerin as needed -Pending results of stress test and echo, anticipated discharge tomorrow #Anxiety Patient reports that he has been suffering from anxiety for some time, but has never had a formal diagnosis - Continue Atarax for anxiety - Psychiatry service consulted, will follow up recommendations - Weekend team started on 12.5 mg cervical when necessary #Chronic medical problems including Parkinson's disease and glaucoma -Continue home medications, Nuplazid is not available. Diet: Heart healthy diet DVT prophylaxis: IV heparin, Alps CODE STATUS: Full code Problem List: 1. ACS (acute coronary syndrome) 2. Parkinson disease Pain Ratin Pain Location: none Pain Goal: Remain pain free Pain Plan: pain pathway Tomorrow's Labs & Rationales: none
--- NOTE | 2017-11-03 10:25 | PN- Att Addend ---
Attending Addendum Attending Brief Note Patient seen and examined. Plan of care discussed with the medical team and the patient. Available lab work and radiology test reports were reviewed. Patient has a sitter. Telemetry shows that he was bradycardic down to 40s heart rate overnight while sleeping. Is currently waiting for nuclear stress test. Patient complains of for mild epigastric discomfort. Exam: General: Patient awake alert oriented without any distress CVS: S1 plus S2 without any murmur or gallops Chest: Few scattered crepitation without any wheeze. There is no respiratory distress. Abdomen: Soft non-tender, bowel sound present, no guarding or rebound STORY READER: Awake alert oriented without any focal neuro deficit and follows commands appropriately Extremities: No edema; no clubbing or cyanosis noted Assessment * Chest pain ruled out for IN and currently waiting for stress test * Bradycardia asymptomatic during sleep * Anxiety * History of Parkinson's disease * History of glaucoma Plan * Await nuclear stress test * Psychiatric consult * Consider discontinuing sitter * Echocardiogram * Add PPI and a trial of GI cocktail * Increase ambulation * Possible discharge tomorrow Current Medications Sig/Luis Miguel Start time Last Medication Dose Route Stop Time Status Admin Acetaminophen 650 MG Q6P PRN 11/01 1730 AC PO Aspirin 325 MG DAILY 11/02 0130 AC 11/03 PO 0801 Atorvastatin Calcium 40 MG 1700 11/02 0200 AC 11/02 PO 1714 Carbidopa/Levodopa 1 TAB Q3H 11/01 1730 AC 11/03 PO 0801 Clopidogrel Bisulfate 75 MG DAILY 11/02 0130 AC 11/03 PO 0800 Heparin Sodium 2,500 UNIT ONCE ONE 11/02 1200 DC 11/02 (Porcine) IV 11/02 1201 1223 Heparin Sodium/ 25,000 UNIT Q24H 11/02 0130 AC 11/03 Dextrose IV 0334 Dextrose/Water 500 ML Hydroxyzine HCl 25 MG 4 TIMES/DAY PRN 11/01 1730 AC 11/02 PO 2121 Latanoprost 1 GTT QPM 11/01 2100 AC 11/02 OPH 2120 Metoprolol Tartrate 12.5 MG BID 11/02 0900 DC 11/02 PO 2120 Nitroglycerin 0.5 GM Q6P PRN 11/02 0130 AC 11/02 TOP 1817 Non-Formulary 0 SEE ADMIN CRITERIA 11/01 1730 UNVr Medication ANY Omeprazole 40 MG DAILY AC 11/02 0700 AC 11/03 PO 0551 Pramipexole 0.75 MG BID 11/01 2100 AC 11/03 Dihydrochloride PO 0801 Quetiapine Fumarate 12.5 MG DAILY PRN 11/02 1915 PO Timolol Maleate 1 GTT Q48 11/03 0900 AC 11/03 OPH 0800 Laboratory Tests 11/03/17 0341: Anion Gap 11, Estimated GFR > 60, BUN/Creatinine Ratio 15.6, APTT 119 *H, CBC w Diff NO MAN DIFF REQ, RBC 4.47 L, MCV 86.4, MCH 29.4, MCHC 34.0, RDW 13.5, MPV 8.6, Gran % 68.1, Lymphocytes % 22.6, Monocytes % 8.4, Eosinophils % 0.4, Basophils % 0.5, Absolute Granulocytes 6.6 H, Absolute Lymphocytes 2.2, Absolute Monocytes 0.8 H, Absolute Eosinophils 0, Absolute Basophils 0 11/02/172042: Troponin I < 0.01, APTT > 120 *H 11/02/17 0900: APTT Cancelled 11/02/17 0835: APTT 51 H 11/02/17 0200: Anion Gap 10, Estimated GFR > 60, BUN/Creatinine Ratio 15.6, Magnesium 2.1, Troponin I < 0.01, Triglycerides 89, Cholesterol 147, LDL Cholesterol, Calc 67, HDL Cholesterol 63 H, Cholesterol/HDL Ratio 2, CBC w Diff NO MAN DIFF REQ, RBC 4.57 L, MCV 86.9, MCH 29.5, MCHC 34.0, RDW 13.3, MPV 8.3, Gran % 67.0, Lymphocytes % 24.2, Monocytes % 7.8, Eosinophils % 0.7, Basophils % 0.3, Absolute Granulocytes 7.1 H, Absolute Lymphocytes 2.6, Absolute Monocytes 0.8 H, Absolute Eosinophils 0.1, Absolute Basophils 0 11/01/172044: Troponin I < 0.01 11/01/17 1533: Urine Opiates Screen < 100, Methadone Screen < 40, Barbiturate Screen < 60, Ur Phencyclidine Scrn < 6.00, Amphetamines Screen 209, U Benzodiazepines Scrn < 85, Urine Cocaine Screen < 50, Urine Cannabis Screen < 5.00, Urine Color YEL, Urine Clarity CLEAR, Urine pH 6.0, Ur Specific [place] >= 1.030, Urine Protein NEG, Urine Ketones TRACE H, Urine Nitrite NEG, Urine Bilirubin NEG, Urine Urobilinogen 0.2, Ur Leukocyte Esterase NEG, Ur Microscopic EXAM NOT REQUIRED, Urine Hemoglobin NEG, Urine Glucose NEG 11/01/17 1442: Anion Gap 12, Estimated GFR > 60, BUN/Creatinine Ratio 14.4, Glucose 101 H, Calcium 10.0, Total Bilirubin 0.8, AST 30, ALT 17 L, Alkaline Phosphatase 79, Troponin I < 0.01, Total Protein 7.3, Albumin 4.6, Globulin 2.7, Albumin/ Globulin Ratio 1.7, D-Dimer High Sensitivty < 200, CBC w Diff NO MAN DIFF REQ, RBC 5.17, MCV 86.9, MCH 29.1, MCHC 33.5, RDW 13.4, MPV 8.1, Gran % 79.1 H, Lymphocytes % 13.6 L, Monocytes % 6.6, Eosinophils % 0.3, Basophils % 0.4, Absolute Granulocytes 8.1 H, Absolute Lymphocytes 1.4, Absolute Monocytes 0.7 H, Absolute Eosinophils 0, Absolute Basophils 0 Vital Signs Date Time Temp Pulse Resp B/P B/P Pulse O2 O2 Flow FiO2 Mean Ox Delivery Rate 11/03 0700 97.9 48 16 106/64 98 Room Air 11/02 2315 97.5 77 16 122/78 95 Room Air 11/02 2120 78 122/78 11/02 1455 97.8 54 20 110/66 97 Room Air Intake & Output 11/03 1600 11/03 0800 11/03 0000 Intake Total 224.8 610 Output Total 250 Balance -25.2 610 Intake, IV 124.8 160 Intake, Oral 100 450 Number 0 Bowel Movements Output, Urine 250 Patient 176 lb Weight
[2017-11-03 13:56] LABS: PTT 41 SEC (25-37)
--- NOTE | 2017-11-03 15:55 | NUCLEAR MEDICINE REPORT ---
EXERCISE STRESS AND RESTING SPECT MYOCARDIAL PERFUSION IMAGING STUDY WITH GATED SPECT IMAGES: CLINICAL INDICATION: CAD. PROCEDURE: Regional myocardial perfusion was assessed using a 1 day protocol. Stress images were obtained on 11/03/2017 following the intravenous administration of 19.7 mCi Tc 99m Myoview. Stress was performed using the standard Willian protocol, with the patient reaching a peak heart rate of 77% maximal predicted heart rate. Rest images were obtained 11/03/2017 following the intravenous administration of 33 mCi Technetium 99m Myoview. Single photon emission tomographic (SPECT) images were obtained. SPECT images were acquired in a 64 x 64 matrix of 64 projections over 180 degrees. These were reconstructed into standard short axis, horizontal and vertical long axis cardiac projections. FINDINGS: The post stress images demonstrate the left ventricular chamber to be normal in size. There is homogeneous distribution of activity in the left ventricular myocardium with no regions of abnormally decreased activity noted. The resting images also demonstrate homogeneous distribution of activity in the left ventricular myocardium, and are not significantly changed from the post stress images. The stress images were obtained using a gated SPECT technique, which permits visualization of wall motion and calculation of the left ventricular ejection fraction. No left ventricular wall motion abnormalities are noted on the stress study. The calculated left ventricular ejection fraction is 62% on the stress study. No previous study is available for comparison. IMPRESSION: No perfusion abnormalities are noted. Because the patient was unable to achieve an adequate heart rate response, significant myocardial ischemia during exercise cannot be ruled out. Normal left ventricular wall motion and ejection fraction.
--- NOTE | 2017-11-03 15:58 | Event Note ---
Event Note Event Note: Psychiatry reported that patient is getting sinemet Q3h dose in hospital and he was taking once a day at home. Until we find his correct dose for sinemet we will hold it.
--- NOTE | 2017-11-03 17:19 | Cons- Psychiatry ---
Psychiatric Consult Date of Consult: 11/03/17 Reason for Consult: "Reported history of anxiety" History of Present Illness: 62 y.o. , domiciled male with a past medical history of Parkinson's disease and glaucoma brought in by ambulance for evaluation of epigastric pain on 11/01/17 @ 1435. He had eaten in [employer], felt chest pain and called EMS. He has no prior psychiatric diagnosis or treatment history, but reports feelings of anxiety and depression. He is followed for Parkinson's disease by Dr. Carey Pompa of [facility], . I spoke with Dr. Pompa this afternoon, who confirms the current medications: Discontinued: Rytary ER carbidopa/levodopa 36.25/145 mg q nightly. Discontinued: Mirapex/pramipexole Di-HCl 0.75 mg 2X/day Current/continued: Sinemet carbidopa/levodopa 25/250 mg every 3-1/2 to 4 hours, or 5 times per day, maximum. the patient may take an additinal one half tablet ( 12.5/125 mg) overnight, if needed. Current/continued: Nuplazid/Pimavanserin Tartrate 34 mg PO q PM Per Dr. Pompa, it is OK to hold Nuplazid. We may condiser a small bedtime dose of quetiapine/Seroquel of 12.5 to 25 mg PO q HS Allergies: Coded Allergies: No Known Allergies (04/28/16) Current Medications: Current Medications Sig/Luis Miguel Start time Last Medication Dose Route Stop Time Status Admin Acetaminophen 650 MG Q6P PRN 11/01 1730 AC PO Aspirin 325 MG DAILY 11/02 0130 AC 11/03 PO 0801 Atorvastatin Calcium 40 MG 1700 11/02 0200 AC 11/02 PO 1714 Bismuth Subsalicylate 30 ML PCHS 11/03 1800 UNVr PO Calcium Carbonate 500 MG ONCE ONE 11/03 1600 CAN PO 11/03 1601 Calcium Carbonate 500 MG DAILY 11/03 1052 AC 11/03 PO 1154 Carbidopa/Levodopa 1 TAB Q3H 11/01 1730 AC 11/03 PO 1539 Clopidogrel Bisulfate 75 MG DAILY 11/02 0130 AC 11/03 PO 0800 Heparin Sodium/ 25,000 UNIT Q24H 11/02 0130 AC 11/03 Dextrose IV 0334 Dextrose/Water 500 ML Hydroxyzine HCl 25 MG 4 TIMES/DAY PRN 11/01 1730 AC 11/02 PO 2121 Latanoprost 1 GTT QPM 11/01 2100 AC 11/02 OPH 2120 Metoprolol Tartrate 12.5 MG BID 11/02 0900 DC 11/02 PO 2120 Nitroglycerin 0.5 GM Q6P PRN 11/02 0130 AC 11/02 TOP 1817 Non-Formulary 0 SEE ADMIN CRITERIA 11/01 173 CAN Medication ANY Omeprazole 20 MG DAILY AC 11/03 1052 AC 11/03 PO 1154 Omeprazole 40 MG DAILY AC 11/02 0700 DC 11/03 PO 0551 Pramipexole 0.75 MG BID 11/01 2100 AC 11/03 Dihydrochloride PO 0801 Quetiapine Fumarate 12.5 MG DAILY PRN 11/02 1915 AC PO Timolol Maleate 1 GTT Q48 11/03 0900 AC 11/03 OPH 0800 Past History Past Medical History Neurological: Parkinson's disease EENT: glaucoma Cardiovascular: NONE Respiratory: NONE Gastrointestinal: NONE Hepatic: NONE Renal: NONE Musculoskeletal: NONE Psychiatric: NONE Endocrine: NONE Blood Disorders: NONE Cancer(s): NONE Past Surgical History Surgical History: non-contributory Psychosocial History Strengths/Capabilities: Motivated for treatment, supportive family Physical Limitations (Interventions): None known Psychiatric Treatment History Psych Treatment Psychiatric Treatment No (denies) Diagnosis: 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 He is calm and cooperative. He is oriented to person, place, day, month and year. He denies any prior psychiatric history, including diagnosis or treatments. He denies use of drugs or alcohol. He reports current visual hallucinations, seeing people, and flashes of light. He is not in any apparent distress. He reports that his visual hallucinations usually consist of animals and trees at a distance looking like a person, before resolving into their true form. He also reports seeing spiders on the floor occasionally, which turned out to be Lint. He reports that he was being weaned off Mirapex, because it was worsening his visual hallucinations. The skills his depression as 2/10. He denies hopelessness, helplessness or worthlessness. He endorses some guilty feelings, secondary to estrangement from his 25-year-old son after the patient's divorce 10 years ago. The son, Bhargav, currently lives in [place], and the patient would like to reconcile with him. He reports his current anxiety level as 6/10. 10/10 is the most severe. He reports that his sleep at home is sufficient and restful. He reports that his appetite is usually good, in spite of his current abdominal discomfort. He reports that he does not have his medications, including new pleasant, but they are at his house, and he will ask his brother, Dalton, to bring them in on 11/04/2017. He denies suicidal or homicidal ideation, and denies any history of suicide attempt. Lab Results: Laboratory Tests 11/03 11/03 11/02 1230 0341 2043 Chemistry Sodium (137 - 145 mmol/L) 143 Potassium (3.5 - 5.1 mmol/L) 3.8 Chloride (98 - 107 mmol/L) 105 Carbon Dioxide (22 - 30 mmol/L) 27 Anion Gap (5 - 16) 11 BUN (9 - 20 mg/dL) 14 Creatinine (0.7 - 1.2 mg/dL) 0.9 Estimated GFR (>60 ml/min) > 60 BUN/Creatinine Ratio (7 - 25 %) 15.6 Troponin I (<0.11 ng/ml) < 0.01 Coagulation APTT (25 - 37 SEC) 41 H 119 *H > 120 *H Hematology CBC w Diff NO MAN DIFF REQ WBC (4.8 - 10.8 /CUMM) 9.8 RBC (4.70 - 6.10 /CUMM) 4.47 L Hgb (14.0 - 18.0 G/DL) 13.1 L Hct (42 - 52 %) 38.6 L MCV (80.0 - 94.0 FL) 86.4 MCH (27.0 - 31.0 PG) 29.4 MCHC (33.0 - 37.0 G/DL) 34.0 RDW (11.5 - 14.5 %) 13.5 Plt Count (130 - 400 /CUMM) 260 MPV (7.4 - 10.4 FL) 8.6 Gran % (42.2 - 75.2 %) 68.1 Lymphocytes % (20.5 - 51.1 %) 22.6 Monocytes % (1.7 - 9.3 %) 8.4 Eosinophils % (0 - 5 %) 0.4 Basophils % (0.0 - 2.0 %) 0.5 Absolute Granulocytes (1.4 - 6.5 /CUMM) 6.6 H Absolute Lymphocytes (1.2 - 3.4 /CUMM) 2.2 Absolute Monocytes (0.10 - 0.60 /CUMM) 0.8 H Absolute Eosinophils (0.0 - 0.7 /CUMM) 0 Absolute Basophils (0.0 - 0.2 /CUMM) 0 Diffential Diagnosis: 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 The medication claim report showed Rytary ER 36.25/145 mg every night, which the patient informed this was discontinued approximately one month ago. There are no other medications except latanoprost eyedrops listed on the medication claim history, leading us to believe that the Sinemet 25/250 mg by mouth every 3 hours was a replacement for the Rytary. A phone call to the patient's neurologist, Dr. Pompa, confirmed the current regimen, as recorded in the HPI, above. Dr. Pompa is aware that the patient has an intake appointment at her [facility] outpatient psychiatry for evaluation and treatment of his anxiety. Provisional Treatment Plan: 1. Is a substitute for Nuplazid, continue quetiapine 12.5 mg PO daily. Hold for oversedation or respiratory depression. Hold for arrhythmia or QTC greater than 475 ms. Replete potassium to 4.0 and magnesium to 2.0. 2. Continue Sinemet 25/250 mg PO every 3-4 hours, up to a maximum of 5X/day. 3. May take another one half tablet of Sinemet (12.5/125 mg) ovenight, as needed. 4. The patient has an intake appointment at Outpatient Psychiatry on Saturday, November 11, 2017, at 1:[address] [place] [address]. [phone]. He is to bring his insurance card and photo ID. We will continue to follow along with you. Thank you for this consult.
--- NOTE | 2017-11-03 17:26 | PN- Cardiology ---
Subjective Subjective: * No complaints of chest pain or shortness of breath. * Patient was able to ambulate for almost 11 minutes witout chest pain and his nuclear images are negative for ischemia. Objective Vital Signs and I&Os Vital Signs Date Time Temp Pulse Resp B/P B/P Pulse O2 O2 Flow FiO2 Mean Ox Delivery Rate 11/03 0700 97.9 48 16 106/64 98 Room Air 11/02 2315 97.5 77 16 122/78 95 Room Air 11/02 2120 78 122/78 Intake & Output 11/03 1600 11/03 0800 11/03 0000 11/02 1600 11/02 0800 11/02 0000 Intake Total 470 224.8 610 800 188.4 80 Output Total 250 750 125 250 Balance 470 -25.2 610 50 63.4 -170 Intake, IV 70 124.8 160 88.4 Intake, Oral 400 100 450 800 100 80 Number 0 Bowel Movements Output, Urine 250 750 125 250 Patient 176 lb 180 lb Weight Weight Bed scale Measurement Method Physical Exam: General: WD/WN male in NAD; alert and oriented x 3 HEENT: NC/AT, PERRL, EOMI Neck: no JVD, no carotid bruit Heart: RRR with 2/6 systolic murmur Lungs: clear bilaterally ABdomen: soft, NT, +ve bowel sounds Extremities: no edema Assessment/Plan Assessment/Plan * This patient has intermittent chest discomfort without any clear exertional component which is increasing in frequency, intensity and duration. It is not related to eating of breathing but is increased by anxiety and possibly by walking. The discomfort is consistent with unstable angina but he has ruled out for an NC and his stress test was negative for ischemia. We can discharge this patient to home with follow up in the office in a week. Continue Metoprolol, aspirin 325mg daily and a statin. Continue telemetry? Yes
[2017-11-03] MEDS ORDERED: ASPIRIN325 M2 PO ×2 (18:28→18:56)
[2017-11-03] MEDS ORDERED: ATORVASTATIN CA40 M1 PO ×3 (18:28→18:56)
--- NOTE | 2017-11-03 18:36 | Patient Discharge Instructions ---
Discharge Instructions General Discharge Information You were seen/treated for: Unstable angina Anxiety Special Instructions: Follow-up with your primary care phyisician within 1 week of discharge. Follow-up with Dr. Keene, cardology, within 1 week of discharge. We have provided you with a referral. Follow-up with your neurologist as previously scheduled, please confirm the doses and scheduling of your medications with him. Outpatient Psychiatry on Saturday, November 11, 2017, at 1:15 PM Call your doctor or return to the ER if you should experience worsening chest pain, shortness of breath, lightheadedness or loss of consciousness. Acute Coronary Syndrome Inclusion Criteria At DC or during hospital stay patient has or had the following: ACS DIAGNOSIS No Discharge Core Measures Meds if any: Prescribed or Continued at Discharge Meds if any: NOT Prescribed or Continued at Discharge Congestive Heart Failure Inclusion Criteria At DC or during hospital stay patient has or had the following: CHF DIAGNOSIS No Discharge Core Measures Meds if any: Prescribed or Continued at Discharge Meds if any: NOT Prescribed or Continued at Discharge Cerebrovascular accident Inclusion Criteria At DC or during hospital stay patient has or had the following: CVA/TIA Diagnosis No Discharge Core Measures Meds if any: Prescribed or Continued at Discharge Meds if any: NOT Prescribed or Continued at Discharge Venous thromboembolism Inclusion Criteria VTE Diagnosis No VTE Type NONE VTE Confirmed by (Test) NONE Discharge Core Measures - Per Current guidelines, there needs to be overlap - treatment for the first 5 days of Warfarin therapy. - If discharged on Warfarin prior to 5 days of - overlap therapy, the patient will need to be - assessed for post discharge needs including - *Post discharge parental anticoagulation - *Warfarin and/or parental anticoagulation education - *Follow up date to check INR post discharge At least 5 days overlap therapy as Inpatient No Meds if any: Prescribed or Continued at Discharge Note: Overlap Therapy is Warfarin and Anticoagulant Meds if any: NOT Prescribed or Continued at Discharge
[2017-11-03] MEDS ORDERED: METOPROLOL TART25 M1 PO ×2 (18:38→18:56)
[2017-11-03 22:00] VITALS: BP 122/88
--- NOTE | 2017-11-04 07:09 | PN- Housestaff ---
Subjective Follow-up For: unstable angina Tele-Events Since Last Visit: bradycardia down to high 30s Subjective: Patient was seen and examined at bedside. He is resting comfortably. No acute events overnight. Patient is eager to be discharged today. He had no recurrence of chest pain. He denies any shortness of breath, lightheadedness, dizziness, epigastric pain. Review of Systems Constitutional: Denies: chills, fever, weakness. EENTM: Reports: no symptoms. Cardiovascular: Reports: no symptoms. Respiratory: Reports: cough, sputum production. Denies: short of breath. Gastrointestinal: Reports: no symptoms. Genitourinary: Reports: no symptoms. Musculoskeletal: Reports: no symptoms. Skin: Reports: no symptoms. Neurological/Psychological: Reports: anxiety. Objective Last 24 Hrs of Vital Signs/I&O Vital Signs Date Time Temp Pulse Resp B/P B/P Pulse O2 O2 Flow FiO2 Mean Ox Delivery Rate 11/03 2213 58 122/88 11/03 2200 98.5 58 18 122/88 97 Room Air Intake & Output 11/04 0800 11/04 0000 11/03 1600 Intake Total 120 470 Output Total Balance 120 470 Intake, IV 70 Intake, Oral 120 400 Number 1 Bowel Movements Patient 174 lb Weight Physical Exam General Appearance: Alert, Oriented X3, Cooperative, No Acute Distress Sepsis Skin Exam (color): Normal for Ethnicity Cardiovascular: Regular Rate, Normal S1, Normal S2 Lungs: Clear to Auscultation, Normal Air Movement Abdomen: Normal Bowel Sounds, Soft, No Tenderness Orders ECHO Findings: Left Ventricle Normal left ventricular size with mild left ventricular hypertrophy. Normal systolic function with no obvious regional wall motion abnormalities. Normal left ventricular diastolic filling pattern for age. The ejection fraction is visually estimated at 60%. Right Ventricle The right ventricle is normal in size and function. Right Atrium The right atrium is normal in size. Left Atrium The left atrium is normal in size. The interatrial septum is intact. Mitral Valve The mitral valve is normal in structure and function. There is no mitral regurgitation. Aortic Valve Structurally normal aortic valve without significant sclerosis or stenosis. There is no aortic regurgitation. Tricuspid Valve The tricuspid valve is normal in structure and function. There is trace tricuspid regurgitation. Pulmonary artery systolic pressure is normal. Pulmonic Valve Structurally normal pulmonic valve. There is trace pulmonic regurgitation. Pericardium Normal pericardium without effusion. No pleural effusion. Great Vessels Normal aortic root dimension. The aortic arch and great vessels are well seen and are normal. CONCLUSIONS 1. Normal EF of 60%. 2. Mild left ventricular hypertrophy. 3. Trace tricuspid regurgitation. 4. Trace pulmonic regurgitation. Radiology Findings: EXERCISE STRESS AND RESTING SPECT MYOCARDIAL PERFUSION IMAGING STUDY WITH GATED SPECT IMAGES: The post stress images demonstrate the left ventricular chamber to be normal in size. There is homogeneous distribution of activity in the left ventricular myocardium with no regions of abnormally decreased activity noted. The resting images also demonstrate homogeneous distribution of activity in the left ventricular myocardium, and are not significantly changed from the post stress images. The stress images were obtained using a gated SPECT technique, which permits visualization of wall motion and calculation of the left ventricular ejection fraction. No left ventricular wall motion abnormalities are noted on the stress study. The calculated left ventricular ejection fraction is 62% on the stress study. No previous study is available for comparison. IMPRESSION: No perfusion abnormalities are noted. Because the patient was unable to achieve an adequate heart rate response, significant myocardial ischemia during exercise cannot be ruled out. Normal left ventricular wall motion and ejection fraction. Assessment/Plan Assessment: Patient is a 62-year-old man with a PMH significant for Parkinson's disease who presented complaining of acute onset of epigastric pain. Pain is associated with by mouth intake, patient also believes that there may be a component of his anxiety to the pain. #Chest pain, unstable angina no recurrence of chest pain -stress test was negative for ischemia -Continue PPI and Tums -DC IV heparin, continue metoprolol, aspirin, Plavix, statin, nitroglycerin as needed -Pending results of stress test and echo, anticipated discharge tomorrow #Anxiety Patient reports that he has been suffering from anxiety for some time, but has never had a formal diagnosis - Continue Atarax for anxiety - psych recommendations appreciated - continue 12.5 mg cervical when necessary #Chronic medical problems including Parkinson's disease and glaucoma -Continue home medications, Nuplazid is not available. Diet: Heart healthy diet DVT prophylaxis: IV heparin, Alps CODE STATUS: Full code Problem List: 1. Unstable angina 2. Parkinson disease Pain Ratin Pain Location: none Pain Goal: Remain pain free Pain Plan: pain pathway Tomorrow's Labs & Rationales: none
[2017-11-04 07:23] VITALS: BP 122/72
--- NOTE | 2017-11-04 07:38 | ECHOCARDIOGRAM REPORT ---
DE HALLMAN Age: 62 : 1955 Gender: M Exam Date: 11/03/2017 09:39 Exam Location: [place] Ht (in): 69 Wt (lb): 163 BSA: 1.90 BP: 106 / 64 Ordering Physician: Bhargav Blanco MD Referring Physician: Bhargav Blanco MD Technologist: Sid Lemus [facility] Room Number: [id number] Indications: Chest Pain Rhythm: Sinus Technical Quality: good FINDINGS Left Ventricle Normal left ventricular size with mild left ventricular hypertrophy. Normal systolic function with no obvious regional wall motion abnormalities. Normal left ventricular diastolic filling pattern for age. The ejection fraction is visually estimated at 60%. Right Ventricle The right ventricle is normal in size and function. Right Atrium The right atrium is normal in size. Left Atrium The left atrium is normal in size. The interatrial septum is intact. Mitral Valve The mitral valve is normal in structure and function. There is no mitral regurgitation. Aortic Valve Structurally normal aortic valve without significant sclerosis or stenosis. There is no aortic regurgitation. Tricuspid Valve The tricuspid valve is normal in structure and function. There is trace tricuspid regurgitation. Pulmonary artery systolic pressure is normal. Pulmonic Valve Structurally normal pulmonic valve. There is trace pulmonic regurgitation. Pericardium Normal pericardium without effusion. No pleural effusion. Great Vessels Normal aortic root dimension. The aortic arch and great vessels are well seen and are normal. CONCLUSIONS 1. Normal EF of 60%. 2. Mild left ventricular hypertrophy. 3. Trace tricuspid regurgitation. 4. Trace pulmonic regurgitation. Gee Keene M.D. (Electronically Signed) Final Date: 04 November 2017 07:37 MEASUREMENTS (Male / Female) Normal Values 2D ECHO LV Diastolic Diameter PLAX 4.4 cm 4.2 - 5.9 / 3.9 - 5.3 cm LV Systolic Diameter PLAX 3.0 cm 2.1 - 4.0 cm LV Fractional Shortening PLAX 31.8 % 25 - 46 % LV Ejection Fraction 2D Teich 60.1 % IVS Diastolic Thickness 1.0 cm LVPW Diastolic Thickness 1.2 cm LV Relative Wall Thickness 0.5 RV Internal Dim ED PLAX 3.3 cm 1.9 - 3.8 cm LVOT Diameter 1.9 cm Aortic Root Diameter 2.7 cm LA Systolic Diameter LX 3.8 cm 3.0 - 4.0 / 2.7 - 3.8 cm LA Volume 36.0 cm 18 - 58 / 22 - 52 cm Ascending Aorta Diameter 2.7 cm DOPPLER AV Peak Velocity 123.0 cm/s AV Peak Gradient 6.1 mmHg AV Mean Velocity 81.4 cm/s AV Mean Gradient 3.0 mmHg AV Velocity Time Integral 31.7 cm LVOT Peak Velocity 105.0 cm/s LVOT Peak Gradient 4.4 mmHg LVOT Mean Velocity 61.4 cm/s LVOT Mean Gradient 2.0 mmHg LVOT Velocity Time Integral 24.3 cm LVOT Stroke Volume 68.9 cm AV Area Cont Eq vti 2.2 cm AV Area Cont Eq pk 2.4 cm MV Peak Velocity 85.5 cm/s MV Peak Gradient 2.9 mmHg MV Mean Velocity 38.7 cm/s MV Mean Gradient 1.0 mmHg Mitral E Point Velocity 77.5 cm/s Mitral A Point Velocity 40.5 cm/s Mitral E to A Ratio 1.9 MV PHT Velocity 85.5 cm/s MV Deceleration Edmunds 363.0 cm/s MV Pressure Half Time 70.7 ms MV Area PHT 3.1 cm MV Deceleration Time 232.0 ms TR Peak Velocity 238.0 cm/s TR Peak Gradient 22.7 mmHg Right Atrial Pressure 5.0 mmHg Pulmonary Artery Systolic Pressu 27.7 mmHg Right Ventricular Systolic Press 27.7 mmHg PV Peak Velocity 112.0 cm/s PV Peak Gradient 5.0 mmHg PV Mean Velocity 77.4 cm/s PV Mean Gradient 3.0 mmHg PV Velocity Time Integral 32.7 cm LV E' Lateral Velocity 12.1 cm/s Mitral E to LV E' Lateral Ratio 6.4 LV E' Septal Velocity 10.0 cm/s Mitral E to LV E' Septal Ratio 7.8
[2017-11-04] MEDS ORDERED: OMEPRAZOLE20 M2 PO ×2 (08:03→10:55)
[2017-11-04 10:44] VITALS: BP 122/72
--- NOTE | 2017-11-04 10:49 | PN- Att Addend ---
Attending Addendum Attending Brief Note Patient seen and examined. Plan of care discussed with the medical team and the patient. Available lab work and radiology test reports were reviewed. Patient has a sitter. Patient underwent stress test yesterday which came out negative. Patient feels much better today and wants to go home. Denies any new complaints this morning. Exam: General: Patient awake alert oriented without any distress CVS: S1 plus S2 without any murmur or gallops Chest: Few scattered crepitation without any wheeze. There is no respiratory distress. Abdomen: Soft non-tender, bowel sound present, no guarding or rebound RETAIL EVENT COORDINATOR: Awake alert oriented without any focal neuro deficit and follows commands appropriately Extremities: No edema; no clubbing or cyanosis noted Assessment * Chest pain ruled out for SC and stress test negative * Bradycardia asymptomatic during sleep * Anxiety- seen by psychiatry and will follow as outpatient * History of Parkinson's disease * History of glaucoma Plan * Continue PPI and Pepto-Bismol when necessary * discharge home today * Follow-up with psychiatry as outpatient * Follow with PCP as outpatient * Patient stable for discharge Total time spent in preparation for discharge plan, patient education, and CMR preparation was 35 minutes. Current Medications Sig/Luis Miguel Start time Last Medication Dose Route Stop Time Status Admin Acetaminophen 650 MG .STK-MED ONE 11/03 1944 DC PO 11/03 194 Acetaminophen 650 MG Q6P PRN 11/01 1730 AC 11/03 PO 195 Aspirin 325 MG DAILY 11/02 0130 AC 11/04 PO 0752 Atorvastatin Calcium 40 MG 1700 11/02 0200 AC 11/03 PO 1721 Bismuth Subsalicylate 30 ML PC 11/03 1800 AC 11/04 PO 0752 Calcium Carbonate 500 MG ONCE ONE 11/03 1600 CAN PO 11/03 1601 Calcium Carbonate 500 MG DAILY 11/03 1052 AC 11/04 PO 0752 Carbidopa/Levodopa 1 TAB Q3H 11/03 2230 AC 11/04 PO 1045 Carbidopa/Levodopa 1 TAB Q3H 11/01 1730 DC 11/03 PO 2213 Clopidogrel Bisulfate 75 MG DAILY 11/02 0130 AC 11/04 PO 0752 Heparin Sodium/ 25,000 UNIT Q24H 11/02 0130 DC 11/03 Dextrose IV 0334 Dextrose/Water 500 ML Hydroxyzine HCl 25 MG 4 TIMES/DAY PRN 11/01 1730 AC 11/03 PO 1953 Latanoprost 1 GTT QPM 11/01 2100 AC 11/03 OPH 2213 Metoprolol Tartrate 12.5 MG BID 11/03 2100 AC 11/04 PO 1044 Nitroglycerin 0.5 GM Q6P PRN 11/02 0130 11/02 TOP 1817 Non-Formulary 0 SEE ADMIN CRITERIA 11/01 1730 CAN Medication ANY Omeprazole 20 MG DAILY AC 11/03 1052 AC 11/04 PO 0659 Omeprazole 40 MG DAILY AC 11/02 0700 DC 11/03 PO 0551 Pramipexole 0.75 MG BID 11/01 2099 MI 11/03 Dihydrochloride PO 0801 Quetiapine Fumarate 12.5 MG DAILY PRN 11/02 1915 PO Timolol Maleate 1 GTT Q48 11/03 0900 11/03 OPH 0800 Laboratory Tests 11/03/17 2130: APTT Cancelled 11/03/17 1230: APTT 41 H 11/03/17 0341: Anion Gap 11, Estimated GFR > 60, BUN/Creatinine Ratio 15.6, APTT 119 *H, CBC w Diff NO MAN DIFF REQ, RBC 4.47 L, MCV 86.4, MCH 29.4, MCHC 34.0, RDW 13.5, MPV 8.6, Gran % 68.1, Lymphocytes % 22.6, Monocytes % 8.4, Eosinophils % 0.4, Basophils % 0.5, Absolute Granulocytes 6.6 H, Absolute Lymphocytes 2.2, Absolute Monocytes 0.8 H, Absolute Eosinophils 0, Absolute Basophils 0 11/02/17 2043: Troponin I < 0.01, APTT > 120 *H 11/02/17 0900: APTT Cancelled 11/02/17 0835: APTT 51 H 11/02/17 0200: Anion Gap 10, Estimated GFR > 60, BUN/Creatinine Ratio 15.6, Magnesium 2.1, Troponin I < 0.01, Triglycerides 89, Cholesterol 147, LDL Cholesterol, Calc 67, HDL Cholesterol 63 H, Cholesterol/HDL Ratio 2, CBC w Diff NO MAN DIFF REQ, RBC 4.57 L, MCV 86.9, MCH 29.5, MCHC 34.0, RDW 13.3, MPV 8.3, Gran % 67.0, Lymphocytes % 24.2, Monocytes % 7.8, Eosinophils % 0.7, Basophils % 0.3, Absolute Granulocytes 7.1 H, Absolute Lymphocytes 2.6, Absolute Monocytes 0.8 H, Absolute Eosinophils 0.1, Absolute Basophils 0 11/01/172044: Troponin I < 0.01 11/01/17 1533: Urine Opiates Screen < 100, Methadone Screen < 40, Barbiturate Screen < 60, Ur Phencyclidine Scrn < 6.00, Amphetamines Screen 209, U Benzodiazepines Scrn < 85, Urine Cocaine Screen < 50, Urine Cannabis Screen < 5.00, Urine Color YEL, Urine Clarity CLEAR, Urine pH 6.0, Ur Specific [place] >= 1.030, Urine Protein NEG, Urine Ketones TRACE H, Urine Nitrite NEG, Urine Bilirubin NEG, Urine Urobilinogen 0.2, Ur Leukocyte Esterase NEG, Ur Microscopic EXAM NOT REQUIRED, Urine Hemoglobin NEG, Urine Glucose NEG 11/01/17 1442: Anion Gap 12, Estimated GFR > 60, BUN/Creatinine Ratio 14.4, Glucose 101 H, Calcium 10.0, Total Bilirubin 0.8, AST 30, ALT 17 L, Alkaline Phosphatase 79, Troponin I < 0.01, Total Protein 7.3, Albumin 4.6, Globulin 2.7, Albumin/ Globulin Ratio 1.7, D-Dimer High Sensitivty < 200, CBC w Diff NO MAN DIFF REQ, RBC 5.17, MCV 86.9, MCH 29.1, MCHC 33.5, RDW 13.4, MPV 8.1, Gran % 79.1 H, Lymphocytes % 13.6 L, Monocytes % 6.6, Eosinophils % 0.3, Basophils % 0.4, Absolute Granulocytes 8.1 H, Absolute Lymphocytes 1.4, Absolute Monocytes 0.7 H, Absolute Eosinophils 0, Absolute Basophils 0 Vital Signs Date Time Temp Pulse Resp B/P B/P Pulse O2 O2 Flow FiO2 Mean Ox Delivery Rate 11/04 1044 74 122/72 11/04 0723 97.7 51 20 97 Room Air 11/03 2213 58 122/88 11/03 2200 98.5 58 18 97 Room Air Intake & Output 11/04 1600 11/04 0800 11/04 0000 Intake Total 120 Output Total Balance 120 Intake, Oral 120 Number 1 Bowel Movements Patient 174 lb Weight
[2017-11-04] MEDS ORDERED: ATORVASTATIN CA40 M1 PO (10:55)
[2017-11-04] MEDS ORDERED: ASPIRIN325 M2 PO (10:55)
[2017-11-04] MEDS ORDERED: METOPROLOL TART25 M1 PO (10:55)
--- NOTE | 2017-11-04 12:31 | PN- Cardiology ---
Subjective Subjective: * No complaints * sinus rhythm Objective Vital Signs and I&Os Vital Signs Date Time Temp Pulse Resp B/P B/P Pulse O2 O2 Flow FiO2 Mean Ox Delivery Rate 11/04 1044 74 122/72 11/04 0723 97.7 51 20 12272 97 Room Air 11/03 2213 58 122/88 11/03 2200 98.5 58 18 122/88 97 Room Air Intake & Output 11/04 1600 11/04 0800 11/04 0000 11/03 1600 11/03 0800 11/03 0000 Intake Total 120 470 224.8 610 Output Total 250 Balance 120 470 -25.2 610 Intake, IV 70 124.8 160 Intake, Oral 120 400 100 450 Number 1 0 Bowel Movements Output, Urine 250 Patient 174 lb 176 lb Weight Physical Exam: General: WD/WN male in NAD; alert and oriented x 3 HEENT: NC/AT, PERRL, EOMI Neck: no JVD, no carotid bruit Heart: RRR with 2/6 systolic murmur Lungs: clear bilaterally ABdomen: soft, NT, +ve bowel sounds Extremities: no edema Assessment/Plan Assessment/Plan * This patient has intermittent chest discomfort without any clear exertional component which was noted by the patient to be increasing in frequency, intensity and duration. It was not related to eating of breathing but was increased by anxiety and possibly by walking. The discomfort is consistent with unstable angina but he has ruled out for an AR and his stress test was negative for ischemia. We can discharge this patient to home with follow up in the office in a week. Continue Metoprolol, aspirin 325mg daily and a statin. Continue telemetry? No
--- NOTE | 2017-11-04 13:06 | Discharge Summary ---
Visit Information Visit Dates Admission Date: 11/01/17 Discharge Date: 11/04/17 Hospital Course Course Attending Physician: Yaima Bhagat MD Primary Care Physician: Suzette Argueta MD Consulting Request: 1 Consulting Specialty: Cardiology Consulting Request: 2 Consulting Specialty: Psychiatry Hospital Course: Patient is a 62-year-old man 100. Significant for Parkinson's disease and glaucoma who was brought in by ambulance after having severe epigastric pain and chest discomfort. On presentation vital signs: -Temperature: 97.4-97.6 -Heart rate: 59-63 -Respiratory rate: 18 -Systolic BP: 106-150 -Diastolic BP: 60-86 -O2 sat: 96-98% on room air On presentation Labs and imiging: -CBC: WBC 10.3, hemoglobin 15.1, hematocrit 45.0, platelet 346 -BMP: Sodium 141, potassium 4.5, chloride 101, CO2 28, urea 13, creatinine 0.9, anion gap 12, glucose 101 -LFT: Within normal limits -Miscellaneous: Troponin I <0.01, d-dimer negative -Urinalysis: Unremarkable -Urine toxicology: Unremarkable -CXR: Unremarkable -EKG: Normal sinus rhythm #Unstable angina Serial troponins were negative and EKG showed no significant ST-T changes. Cardiology was contacted and he was seen by Gee Keene MD. He was started on full dose aspirin, statin, metoprolol, and IV heparin. Due to the quality and severity chest discomfort and epigastric pain patient was deemed to have unstable angina and went for a treadmill stress test and resting nuclear imaging study. No perfusion abnormalities are seen however the patient was unable to achieve adequate heart. Echo was also done which showed a normal LVEF, mild LVH. IV Heparin was stopped after approximately 40 hours. Patient was also started on a PPI for GI cocktail as needed for epigastric pain. He was discharged on full dose aspirin, metoprolol, and statin with instructions to follow-up with Dr. Keene as an outpatient. #Anxiety Patient has never been formally diagnosed with anxiety however expressed a desire to see a psychiatrist all admitted given worsening symptoms. He was started on Atarax every 6 hours when necessary for his anxiety. He was seen by psychiatry as an inpatient and recommended outpatient follow-up to establish psychiatric care. Anxiety is well controlled as an inpatient. #Chronic medical problems including Parkinson's disease and glaucoma Patient's home regimen of Sinemet was continued, Nuplazid was not available from the pharmacy and the patient could not get his medications to provide them. Patient's glaucoma medications were continued. DVT prophylaxis was addressed with IV heparin and mechanical VTE prophylaxis. Patient was given a heart healthy diet. Allergies: Coded Allergies: No Known Allergies (04/28/16) Significant Procedures: EXERCISE STRESS AND RESTING SPECT MYOCARDIAL PERFUSION IMAGING STUDY WITH GATED SPECT IMAGES: The post stress images demonstrate the left ventricular chamber to be normal in size. There is homogeneous distribution of activity in the left ventricular myocardium with no regions of abnormally decreased activity noted. The resting images also demonstrate homogeneous distribution of activity in the left ventricular myocardium, and are not significantly changed from the post stress images. The stress images were obtained using a gated SPECT technique, which permits visualization of wall motion and calculation of the left ventricular ejection fraction. No left ventricular wall motion abnormalities are noted on the stress study. The calculated left ventricular ejection fraction is 62% on the stress study. No previous study is available for comparison. IMPRESSION: No perfusion abnormalities are noted. Because the patient was unable to achieve an adequate heart rate response, significant myocardial ischemia during exercise cannot be ruled out. Normal left ventricular wall motion and ejection fraction. ECHO Findings: Left Ventricle Normal left ventricular size with mild left ventricular hypertrophy. Normal systolic function with no obvious regional wall motion abnormalities. Normal left ventricular diastolic filling pattern for age. The ejection fraction is visually estimated at 60%. Right Ventricle The right ventricle is normal in size and function. Right Atrium The right atrium is normal in size. Left Atrium The left atrium is normal in size. The interatrial septum is intact. Mitral Valve The mitral valve is normal in structure and function. There is no mitral regurgitation. Aortic Valve Structurally normal aortic valve without significant sclerosis or stenosis. There is no aortic regurgitation. Tricuspid Valve The tricuspid valve is normal in structure and function. There is trace tricuspid regurgitation. Pulmonary artery systolic pressure is normal. Pulmonic Valve Structurally normal pulmonic valve. There is trace pulmonic regurgitation. Pericardium Normal pericardium without effusion. No pleural effusion. Great Vessels Normal aortic root dimension. The aortic arch and great vessels are well seen and are normal. CONCLUSIONS 1. Normal EF of 60%. 2. Mild left ventricular hypertrophy. 3. Trace tricuspid regurgitation. 4. Trace pulmonic regurgitation. Disposition Summary Disposition Principal Diagnosis: Unstable angina Additional Diagnosis: anxiety, parkinson's disease Discharge Disposition: home health services Discharge Instructions General Discharge Information Code Status: Full Code Patient's Diet: heart healthy Patient's Activity: as tolerated Follow-Up Instructions/Appts: Follow-up with your primary care phyisician within 1 week of discharge. Follow-up with Dr. Keene cardology, within 1 week of discharge. We have provided you with a referral. Follow-up with your neurologist as previously scheduled, please confirm the doses and scheduling of your medications with him. Outpatient Psychiatry on Saturday, November 11, 2017, at 1:15 PM Medications at Discharge Discharge Medications: Stop taking the following medications: Pramipexole Di-HCl (Pramipexole Dihydrochloride) 0.75 MG TABLET ORAL TWICE DAILY Qty = 60 Continue taking these medications: Timolol Maleate (Timolol Maleate) 0.5 % DROPS 1 Drop Both Eyes Every other day Qty = 10 Comments: Last Taken:11/03/17 Time:0800 Latanoprost (Latanoprost) 0.005 % DROPS 1 Drop Both Eyes Every night Qty = 3 Comments: Last Taken:11/03/17 Time:2213 Carbidopa/Levodopa (Carbidopa-Levodopa 25-250 Tab) 25 MG-250 MG TABLET 1 Tablet ORAL Q3H Qty = 240 Comments: Last Taken:11/04/17 Time:1030 Pimavanserin Tartrate (Nuplazid) 17 MG TABLET 2 Tablet ORAL Every night Qty = 60 Comments: NOT GIVEN Start taking the following new medications: Omeprazole (Omeprazole) 20 MG CAPSULE.DR 20 Milligram ORAL DAILY BEFORE BREAKFAST Qty = 30 No Refills Instructions: . Comments: Last Taken:11/04/17 Time:0659 Aspirin (Aspirin*) 325 MG TABLET 325 Milligram ORAL DAILY Qty = 30 No Refills Instructions: . Comments: Last Taken:11/04/17 Time:0752 Metoprolol Tartrate (Metoprolol Tartrate) 25 MG TABLET 12.5 Milligram ORAL TWICE DAILY Qty = 60 No Refills Comments: Last Taken:11/04/17 Time:1030 Atorvastatin Calcium (Atorvastatin Calcium) 40 MG TABLET 40 Milligram ORAL 5 PM Qty = 30 No Refills Comments: Last Taken:11/03/17 Time:1721 Copies To: Ruth WINKLER,[place]; Kendall WINKLER,Suzette; Peña WINKLER,Carey; Yecenia WINKLER PHD,Gee Pollack
== END 2017-11-04 13:05 | DRG 311 ==
LOC: ERH 14:31 → 1NO 16:05 → ERHI 16:05 → 1NO 16:05 → ENRESERV 16:36 → ENTRNSPT 17:13 → EDTRNSPTSTS 17:21 → 1NO 17:25 → CMPTRNSPT 17:40 → 1NO 11-02 14:51 → ENPENDDIS 11-04 09:25 → 1NO 11-04 13:05
PROVIDERS: Emergency Medicine; Hospitalist; Internal Medicine Interventional Cardiology; Student in an Organized Health Care Education/Training Program
DX: I20.0 Unstable angina (principal); G20 Parkinson's disease; F06.2 Psychotic disorder with delusions due to known physiological condition; R44.2 Other hallucinations; R00.1 Bradycardia, unspecified; F41.9 Anxiety disorder, unspecified; H40.9 Unspecified glaucoma; I10 Essential (primary) hypertension; F32.9 Major depressive disorder, single episode, unspecified
CPT/HCPCS: 1NP; 36415; 36592; 71045; 78452; 80307; 81003; 82436; 93005; 93010; 93016; 93017; 93306; 99232; A9502; J1644; J3490; J7060